=== PATIENT | male | born 1990 | race Caucasian/White ===

== ENCOUNTER 2020-09-21 10:44 | Outpatient (RCR) | payer OTHER, SELFPAY ==
[2017-06-06 12:40] VITALS: BMI 47.2
== END 2020-11-14 23:59 ==
LOC: IMMUN 10:44
PROVIDERS: Referring Provider Family Medicine; Visit Provider Family Medicine
DX: Z23 Encounter for immunization (principal)
CPT/HCPCS: 0001A; 0002A; 91300